=== PATIENT | female | born 1950 | race Caucasian/White ===

== ENCOUNTER 2024-03-17 14:30 | Emergency (ER) | payer OTHER ==
[~2024-03-17] VITALS: Ht 170.2 cm; Wt 76.3 kg
[2024-03-17 14:40] VITALS: BP 148/80; RESP 16; O2SAT 97
--- NOTE | 2024-03-17 14:47 | ECG ---
[facility] Test Date: 2024-03-17 Test Time: 14:37:15 Pat Name: CHRISTEN VELÁSQUEZ Department: er Room: Gender: F Manager Qa: mary kay : 1950 Requested By: JOHN OCAMPO Order Number: [id number] Reading MD: Dipak Bronson Measurements Intervals [place] Rate: 90 P: 0 MI: 0 QRS: -73 QRSD: 106 T: 63 QT: 316 QTc: 387 Interpretive Statements Accelerated junctional rhythm Left anterior fascicular block Probable anteroseptal infarct, old Electronically Signed On 03-19-2024 16:14:37 PST by Dipak Bronson Please click the below link to view image of tracing.
[2024-03-17] MEDS ORDERED: ASPirin 81 mg TAB PO ONE (15:15)
[2024-03-17 16:32] VITALS: PULSE 90
--- NOTE | 2024-03-17 16:32 | ED.PDOC ---
History of Present Illness HPI Comments 73 y/o F, with a Hx of DM, HLD, HTN, and cholecystectomy and a FMHx of lung CA, is BIBA from [facility] outpatient facility for c/o chest pain, shortness of breath, and abnormal labs, today. Per EMS report, patient was sent from aforementioned facility after beginning to endorse onset of persisting chest pain and difficulty breathing, this afternoon, in addition to being found with a troponin level of 75 following recent lab blood work. Patient also endorses on having left-sided rib pain that has been ongoing following a recent mechanical trip and fall onto her left-side onto a street w/o head injury or LOC 6x days ago. Patient is reported to have been found with a SpO2 of 98%RA and state on difficulty breathing subsiding after being placed on O2 by EMS en route. Patient also endorses on pain to both chest and rib area worsening with touch and inspiration. Patient denies having any palpitations, nausea, vomiting, fever, chills, or other associated symptoms or modifiers at this time. Chief Complaint: Rib Pain Time Seen by MD: 16:10 Primary Care Provider: AILYN Reviewed Notes: Nurses Notes, Medications, Allergies Allergies: Coded Allergies: NO KNOWN ALLERGIES (Unverified , 03/17/24) Information Source: Patient Mode of Arrival: EMS Severity: Moderate Timing: Hours Duration: Since onset Prehospital treatment: None Past Medical History PAST MEDICAL HISTORY: DM, High Lipids, HTN Surgical History: Appendectomy, Cholecystectomy, Tonsillectomy DIRECTOR OF PUBLIC RELATIONS History: Denies all DIRECTOR OF PUBLIC RELATIONS Hx Family History Family History: No family hx of DM, No family hx of HTN, No family hx ofKidney dylan, No family hx of Liver dylan, No family hx of Lung dylan, No family hx of Stroke, Family hx of Cancer (lung CA ) Social History Smoker: Non-Smoker Alcohol: Occasionally Drugs: Denies Drug Use Lives In: Home Constitutional: denies: chills, diaphoresis, fatigue, fever, malaise, sweats, weakness, others EENTM: denies: blurred vision, double vision, ear bleeding, ear discharge, ear drainage, ear pain, ear ringing, eye pain, eye redness, hearing loss, mouth pain, mouth swelling, nasal discharge, nose bleeding, nose congestion, nose pain, photophobia, tearing, throat pain, throat swelling, voice changes, others Respiratory: denies: cough, hemoptysis, orthopnea, SOB at rest, shortness of breath, SOB with excertion, stridor, wheezing, others Cardiovascular: reports: chest pain; denies: dizzy spells, diaphoresis, Dyspnea on exertion, edema, irregular heart beat, left arm pain, lightheadedness, palpitations, PND, syncope, others Gastrointestinal: denies: abdomen distended, abdominal pain, blood streaked bowels, constipated, diarrhea, dysphagia, difficulty swallowing, hematemesis, melena, nausea, poor appetite, poor fluid intake, rectal bleeding, rectal pain, vomiting, others Genitourinary: denies: abnormal vagina bleeding, burning, dyspareunia, dysuria, flank pain, frequency, hematuria, incontinence, pain, , vagina discharge, urgency, others Neurological: denies: dizziness, fainting, headache, left sided numbness, left sided weakness, numbness, paresthesia, pre-existing deficit, right sided numbness, right sided weakness, seizure, speech problems, tingling, tremors, weakness, others Musculoskeletal: reports: others (left-rib pain ); denies: back pain, gout, joint pain, joint swelling, muscle pain, muscle stiffness, neck pain Integumetry: denies: bruises, change in color, change in hair/nails, dryness, laceration, lesions, lumps, rash, wounds, others Allergic/Immunocompromised: denies: Difficulty Healing, Frequent Infections, Hives, Itching, others Hematologic/Lymphatic: reports: others (abnormal labs); denies: anemia, blood clots, easy bleeding, easy bruising, swollen glands Endocrine: denies: excessive hunger, excessive sweating, excessive thirst, excessive urination, flushing, intolerance to cold, intolerance to heat, unexplained weight gain, unexplained weight loss, others Psychiatric: denies: anxiety, bipolar disorder, depression, hopeless, panic disorder, schizophrenia, sleepless, suicidal, others All Other Systems: Reviewed and Negative Physical Exam General Appearance: No Apparent Distress HEENT: Normal ENT Inspection, Pharynx Normal, TMs Normal Neck: Full Range of Motion, Non-Tender, Normal, Normal Inspection Respiratory: Chest Non-Tender, Lungs Clear, No Accessory Muscle Use, No Respiratory Distress, Normal Breath Sounds Cardiovascular: No Edema, No JVD, No Murmur, No Gallop, Normal Peripheral Pulses, Regular Rate/Rhythm Breast Exam: Deferred Gastrointestinal: No Organomegaly, Non Tender, No Pulsatile Mass, Normal Bowel Sounds, Soft Genitalia: Deferred Pelvic: Deferred Rectal: Deferred Extremities: No calf tenderness, Normal capillary refill, Normal inspection, Normal range of motion, Non-tender, No pedal edema Musculoskeletal : Apperance: Normal Neurologic: Alert, apron operator II-XII nml as Tested, No Motor Deficits, Normal Affect, Normal Mood, No Sensory Deficits Cerebellar Function: Normal Reflexes: Normal Skin: Dry, Normal Color, Warm Lymphatic: No Adenopathy Was a procedure done? Was a procedure done?: No EKG EKG : Pulse Rate (adult): 90 [place]: Normal Cardiac Rhythm: NSR Block: None Hypertrophy: None ST: Normal Differential Dx Considerations may include: IA, ACS, PE, angina, costochondritis, pericarditis, gastritis, gastroenteritis X-Ray, Labs, Meds, VS Vital Signs Date Time Temp Pulse Resp B/P (MAP) Pulse Ox O2 Delivery O2 Flow Rate FiO2 03/17/24 16:32 90 03/17/24 14:40 98.4 96 16 148/80 (102) 97 03/17/24 14:37 90 The patient was eloped from the department's Images Reviewed?: Images reviewed and evaluated by me Time of 1ST Reevaluation: 16:40 Reevaluation 1ST: Unchanged Patient Education/Counseling: Diagnosis, Treatment, Prognosis Family Education/Counseling: No Family Present Departure 1 Departure Time of Disposition: 17:31 Impression: Primary Impression: Acute chest pain Disposition: 07 LEFT AWOL/ELOPED Condition: Fair Critical Care Note Critical Care Time?: No Stability Stability form required: No Heart Score Heart Score: Heart Score Response (Comments) Value History Moderate Suspicious 1 EKG Normal 0 Age >65 2 Risk Factors 1 or 2 risk factors 1 Troponin Normal limit 0 Total 4 I personally scribed for JOHN OCAMPO MD ([email or web address]) on 03/17/24 at 16:32. Electronically submitted by Efrem Otto ([email or web address]). JOHN OCAMPO MD Mar 17, 2024 16:32
== END 2024-03-17 17:34 | disposition left against medical advice (07) ==
LOC: ER 14:30 → EDBD 14:30 → ER 17:34
DX: R07.89 Other chest pain (principal); E11.9 Type 2 diabetes mellitus without complications; E78.5 Hyperlipidemia, unspecified; I10 Essential (primary) hypertension; Z90.49 Acquired absence of other specified parts of digestive tract; Z90.89 Acquired absence of other organs
CPT/HCPCS: 93005